=== PATIENT | male | born 1945 | race African-American/Black ===

== ENCOUNTER → 2018-05-12 | Outpatient (CLI) | payer MEDICARE, OTHER ==
--- NOTE | 2018-05-12 11:55 | RADIOLOGY REPORT (SQ) ---
EXAM DESCRIPTION: MRI LT UPPER JOINT WITHOUT COMPLETED DATE/TIME: 05/12/2018 8:17 am REASON FOR STUDY: LEFT SHOULDER PAIN (M25.512) M25.512 PAIN IN LEFT SHOULDER COMPARISON: None. TECHNIQUE: Left shoulder images acquired and stored on PACS. Multiplanar imaging to include fat sens itive sequences such as T1, water sensitive sequences such as FST2/STIR, cartilage sensitive sequence s such as FSPD/gradient-echo sequences. LIMITATIONS: None. FINDINGS: BONE MARROW AND CORTEX: No marrow signal abnormalities worrisome for occult fracture JOINT OR BURSAL EFFUSION: Small glenohumeral joint effusion freely communicating with the subacromial /subdeltoid bursa through a full-thickness rotator cuff tear GLENO-HUMERAL ARTICULATION: Mild superior subluxation of the left humeral head, abutting the undersur face of the bony glenoid. No anterior or posterior humeral head subluxation ACROMION AND AC JOINT: Type 2 acromion with bulky bony spurring, narrowing the subacromial space. ROTATOR CUFF AND INTERVAL: Diffuse full-thickness tear throughout the posterior half of the supraspin atus anterior half of the infraspinatus tendons with fatty atrophy of the muscles. Rotator interval intact. Subscapularis intact. LABRUM AND BICEPS LABRAL COMPLEX: Long head biceps tendon in the bicipital groove and in the joint s pace thickened and high in signal from tendinopathy. Diffusely abnormal labrum with diffuse high sig nal from complex degenerative tear. No paralabral cysts. REMAINDER OF LABRUM AND IGHL : No gross tear or paralabral cyst formation. Labral evaluation is less than optimal without joint distention. No thickening of IGHL to suggest adhesive capsulitis. PERIARTICULAR AND ADJACENT SOFT TISSUES: No masses or abnormal nodes. OTHER: No other significant finding. 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
== END ==
LOC: RAD 07:26
PROVIDERS: ATTEND Physician Assistant
DX: M25.512 Pain in left shoulder (principal)

== ENCOUNTER → 2018-10-21 | Outpatient (CLI) | payer MEDICARE, OTHER ==
--- NOTE | 2018-10-21 15:40 | RADIOLOGY REPORT (SQ) ---
EXAM DESCRIPTION: NM WHOLE BODY BONE SCAN COMPLETED DATE/TIME: 10/21/2018 3:16 pm REASON FOR STUDY: (C61) MALIGNANT NEOPLASM OF PROSTATE C61 MALIGNANT NEOPLASM OF PROSTATE COMPARISON: No available imaging studies for comparison. RADIONUCLIDE AND DOSE: 20.6 millicuries Tc99m MDP. The route of agent administration: Intravenous. ADDITIONAL DRUGS AND DOSES: None. TECHNIQUE: Routine delayed images at 3 hour post radionuclide injection acquired of the bony skeleto n including anterior and posterior whole-body projections and additional focused images as needed. LIMITATIONS: None. FINDINGS: BONES: There is uptake present in the posterior elements at approximately T12 an T7. Most likely degenerative. Mild nonspecific uptake is seen in the sternum. Uptake in the shoulders and k nees is consistent with degenerative disease. KIDNEYS: Symmetric excretion without obstruction. OTHER: No other significant finding. IMPRESSION: Mild heterogeneous uptake in the spine as described. No evidence to suggest metastatic disease. Changes described are most consistent with degenerative disease. COMMENT: Quality measure 147: Current bone scan is compared with any available plain radiographs, p rior bone scans, and CT/MRI. TECHNICAL DOCUMENTATION: JOB ID: [id number] [employer]- All Rights Reserved Reading location - IP/workstation name: [email or web address]
== END ==
LOC: RAD 10:41
PROVIDERS: ATTEND Urology
DX: C61 Malignant neoplasm of prostate (principal)
CPT/HCPCS: 78306; A9561; Q9969